=== PATIENT | female | born 1960 | race Caucasian/White ===

== ENCOUNTER 2021-02-05 13:55 | Outpatient (CLI) | payer BC, SELFPAY ==
--- NOTE | ~2021-02-05 | US_ITS ---
EXAMINATION: US right upper quadrant DATE: 02/05/2021 14:26 INDICATION: Right upper quadrant pain TECHNIQUE: Multiple grayscale and Doppler ultrasound images of the abdomen were obtained. COMPARISON: None available FINDINGS: The head and body of the pancreas are normal. The pancreatic tail is obscured by bowel gas. The liver is normal with normal echogenicity and echotexture. No surface nodularity. Normal hepatope lakhwinder flow in the main portal vein. The gallbladder is normal with no abnormal wall thickening, pericho lecystic fluid or stones. The normal common bile duct measures 3 mm. There was no sonographic Pool sign. IMPRESSION: 1. Normal sonographic study of the gallbladder. Reviewed, dictated and finalized at location A.
== END 2021-02-05 13:56 | disposition home or self-care (01) ==
PROVIDERS: PCP Family Medicine Adolescent Medicine; Visit Provider Physician Assistant
DX: R10.11 Right upper quadrant pain (principal)
CPT/HCPCS: 76705

== ENCOUNTER 2021-05-29 11:48 | Emergency (ER) | payer BC, SELFPAY ==
--- NOTE | ~2021-05-29 | CT_ITS ---
EXAMINATION: CT brain wo con INDICATION: Altered mental status COMPARISON: None TECHNIQUE: Standard unenhanced head CT. The dose-length product (DLP) was 605.33 mGy-cm. The mA was a djusted according to patient size. Iterative reconstruction technique was employed. FINDINGS: There is no intracranial hemorrhage, acute infarction, or abnormal mass lesion. The ventric les are normal. There is no abnormal mass effect or midline shift. The dempsey-white matter differentiat ion is normal. The basal cisterns are patent. The orbits are normal. The paranasal sinuses, mastoids and calvarium are normal. IMPRESSION: 1. No acute intracranial abnormality. Reviewed, dictated and finalized at location A. MACHINE FEEDER
--- NOTE | ~2021-05-29 | XR_ITS ---
EXAMINATION: XR chest 1V portable INDICATION: Altered mental status TECHNIQUE: Portable AP chest at 1219 hours COMPARISON: 08/18/2012 FINDINGS: The lungs are free of acute opacities. There is no pleural effusion or pneumothorax. The ca rdiomediastinal silhouette is normal. IMPRESSION: 1. No acute cardiopulmonary abnormality. Reviewed, dictated and finalized at location A. [employer]
[2021-05-29 11:54] VITALS: BP 176/94; PULSE 94; RESP 14; TEMP 36.3; O2SAT 100
--- NOTE | 2021-05-29 12:14 | ECG_ITS ---
Measurements Intervals [place] Rate: 70 P: -1 RI: 144 QRS: 37 QRSD: 97 T: 30 QT: 385 QTc: 417 Interpretive Statements SINUS RHYTHM INCOMPLETE RIGHT BUNDLE BRANCH BLOCK BASELINE ARTIFACT- I, III, AVR, AVL BORDERLINE ECG Electronically Signed On 05-29-2021 15:04:51 SPRINKLER INSPECTOR by Inderjit Falcon D.O.
--- NOTE | 2021-05-29 12:20 | ED.GENADULT ---
HPI - General Adult General Chief complaint: Unspecified Stated complaint: stroke Time Seen by Provider: 05/29/21 12:03 Source: RN notes reviewed History of Present Illness HPI narrative: Patient presents emergency department from home for confusion. Patient states symptoms began while she was getting ready to go over to the family's for Thanksgiving she states she was in the bathroom when she began to feel like the things she was experiencing were not real and she states she felt like she was high she states that she had no numbness or tingling in the extremities no weakness of any of the extremities no facial droop or trouble speaking she states that she feels this way still and that on the way in here she had problems finding her phone she states she lost her phone only 10 times she states that she has had similar episodes before in the past but none recently she does note increased stress as her daughter is being worked up for leukemia and she is tearful during her H&P she denies any chest pain shortness of breath or any other symptom Related Data Allergies Allergy/AdvReac Type Severity Reaction Status Date / Time sulfamethoxazole Allergy Unknown IRRITABLE, Verified 05/29/21 11:58 PT STATES IS MEAN trimethoprim Allergy Unknown IRRITABLE, Verified 05/29/21 11:58 PT STATES IS MEAN Review of Systems Review of Systems: Gen.: Denies fevers or chills ENT: Denies congestion Respiratory: Denies shortness of breath or cough CV: Denies chest pain or palpitations GI: Denies abdominal pain nausea, emesis or diarrhea Musculoskeletal: Denies back pain or muscle pain Neuro: See HPI Skin: Denies rash Except as documented, all other systems reviewed and negative [facility] Past Medical History Medical History (Updated 05/29/21 @ 15:15 by Cam Chatman DO) Hypothyroidism Social History Social History (Updated 05/29/21 @ 12:22 by Cam Chatman DO) Smoking status: Never smoker Exam Narrative: APPEARANCE: Anxious and tearful in bed, nontoxic, HEENT: Normocephalic, atraumatic, OMM, EYES: PERRL, EOMI NECK: Supple, nontender, full range of motion without pain, no meningismus RESPIRATORY: No respiratory distress, clear to auscultation bilaterally with no rhonchi wheezing or rales CARDIOVASCULAR: RRR s murmur ABDOMINAL: Soft, nontender, nondistended MUSCULOSKELETAL: Moves all extremities. No clubbing, cyanosis or edema. NEURO: A and O ?3, following commands, speech normal, cranial nerves II through XII grossly intact,muscle strength 5 out of 5 bilateral upper and lower extremities SKIN:: Warm, dry. Normal Color PSYCHIATRIC: Anxious in appearance and tearful Course Course Emergency Course: Patient states she is feeling much better at this time patient states symptoms are resolved following Ativan Called discussed Dr. Spencer presentation work-up agrees with plan for discharge agrees with plan for patients on Xanax to follow-up as outpatient Discussed with patient results of workup and diagnosis. Discussed need for follow-up with primary care, proper use of medication, and reasons to return to the emergency department. Patient understands and agrees to current treatment plan Vital Signs Vital signs: Vital Signs Temperature 97.4 F L 05/29/21 11:54 Pulse Rate 94 05/29/21 11:54 Respiratory Rate 14 05/29/21 11:54 Blood Pressure 176/94 H 05/29/21 11:54 Pulse Oximetry 100 05/29/21 11:54 Temperature 97.4 F L 05/29/21 11:54 Pulse Rate 78 05/29/21 14:50 Respiratory Rate 19 05/29/21 14:50 Blood Pressure 132/76 05/29/21 14:50 Pulse Oximetry 100 05/29/21 14:50 Medical Decision Making [facility] Narrative Medical decision making narrative: Patient with episode of feeling disoriented she was ANO x4 she had no focal neuro deficits but felt like she was high patient very anxious and tearful on arrival states she is had similar episodes in the past but never this severe patient was tr
[2021-05-29] MEDS: SODIUM CHLORIDE 0.9% IV 1,000 ML 999 ML IV CONT (12:25)
[2021-05-29] MEDS: LORazepam INJ (*CRX) 2 MG/ML VIAL 0.5 MG IV PUSH (12:26)
[2021-05-29 12:35] LABS: Basophils Percent Auto 0.4 % (0.2-1.2); Eosinophils Absolute Auto 0.1 K/mm3 (0-0.3); Eosinophils Percent Auto 0.6 % (0-4.4); Hematocrit 32.8 % (37.0-47.0); Immature Granulocyte Absolute 0.04 K/mm3 (0.00-0.031); Immature Granulocyte Percent A 0.5 % (0-0.5); Lymphocytes Absolute Auto 1.06 K/mm3 (0.9-3.2); Mean Corpuscular HGB Conc 36.6 g/dl (32-36); Mean Corpuscular Hemoglobin 35.8 pg (26-34); Mean Corpuscular Volume 97.9 fl (80-100); Mean Platelet Volume 10.4 fl (7.4-10.4); Monocytes Absolute Auto 0.4 K/mm3 (0.1-0.6); Monocytes Percent Auto 5.2 % (2.6-8.5); Neutrophils Absolute Auto 6.6 K/mm3 (1.3-6.7); Neutrophils Percent Auto 80.3 % (45.5-73.1); Platelet Count Result 150 k/mm3 (150-375); Red Blood Count 3.35 M/mm3 (4.2-5.4); Red Cell Distribution Width 15.6 % (11.5-14.5); White Blood Count 8.2 K/mm3 (4.5-10.0)
[2021-05-29 12:45] LABS: Prothrombin Time 13.4 Seconds (11.1-14.7)
[2021-05-29 12:46] LABS: Alanine Aminotransferase 26 U/L (4-35); Albumin Level 4.4 g/dL (3.5-5.1); Alkaline Phosphatase 54 U/L (38-126); Anion Gap 5 mmol/L (8-16); Aspartate Amino Transferase 32 U/L (14-36); Bilirubin,Total 1.9 mg/dL (0.2-1.3); Blood Urea Nitrogen 14 mg/dL (7-17); Calcium 9.1 mg/dL (8.4-10.2); Carbon Dioxide 29 mmol/L (22-30); Chloride 102 mmol/L (98-107); Estimated CRCL calculation 75 ml/min; Estimated Glomerular Filt Rate > 60; Ethanol < 10 mg/dL (<10); Glucose 115 mg/dL (65-110); Potassium 4.2 mmol/L (3.4-5.0); Sodium 136 mmol/L (137-145)
[2021-05-29 12:56] VITALS: BP 136/72; PULSE 74; RESP 20; O2SAT 100
[2021-05-29 13:54] LABS: Add Urine Microscopic? YES; Appearance Urine Clear (Clear); Bilirubin Urine Negative (Negative); Blood Urine Negative (Negative); Color Urine Yellow (Yellow); Glucose Urine UA Negative (Negative); Ketones Urine Negative (Negative); Leukocyte Esterase Ur Negative LEU/UL (Negative); Mucus Urine Rare /lpf; Nitrate Urine Negative (Negative); Protein Urine Negative (Negative); RBC Urine 0-2 /hpf (0-2); Specific Grav Ur 1.005 (1.001-1.035); Squamous Epithelial Cell Urine Rare /hpf (Few); Urobilinogen Urine Negative mg/dL (<2.0)
[2021-05-29 13:55] LABS: Amphetamine Screen Urine Negative (Negative); Barbiturate Screen Urine Negative (Negative); Benzodiazepines Screen Urine Negative (Negative); Cannabinoid Screen Urine Negative (Negative); Cocaine Screen Urine Negative (Negative); Methadone Screen Urine Negative (Negative); Opiate Screen Urine Negative (Negative); Phencyclidine Screen Urine Negative (Negative)
[2021-05-29 14:50] VITALS: BP 132/76; PULSE 78; RESP 19; O2SAT 100
[2021-05-29 15:44] VITALS: BP 120/84; PULSE 75; RESP 15; O2SAT 100
== END 2021-05-29 15:47 | disposition home or self-care (01) ==
PROVIDERS: Emergency Provider Emergency Medicine; PCP Family Medicine Adolescent Medicine
DX: F41.9 Anxiety disorder, unspecified (principal); E03.9 Hypothyroidism, unspecified
CPT/HCPCS: 36415; 70450; 71045; 80053; 80307; 81001; 84443; 85025; 85610; 85730; 93005; 96361; 96374; 99284; J2060; J7030

== ENCOUNTER → 2022-12-23 13:40 | Outpatient (CLI) | payer BC, SELFPAY ==
--- NOTE | ~2022-12-23 | US_ITS ---
US abdomen complete EXAMINATION: US Abdomen Complete INDICATION: Right upper quadrant pain for 6 weeks. Spherocytosis. PROCEDURE: Realtime High Resolution abdomen ultrasound. COMPARISON: No prior studies for comparison FINDINGS: Gallbladder within normal limits. No gallstones, pericholecystic fluid, gallbladder wall t hickening or biliary dilatation. Common bile duct measures 5 mm. Liver echotexture within normal limits without focal mass. Pancreas within normal limits. Pancreati c tail is obscured by bowel gas. Spleen is enlarged measuring 13.5 cm. Renal echotexture is within n ormal limits bilaterally without hydronephrosis, contour deforming mass or renal stone. Right kidney measures 10.9 cm. Left kidney measures 11.7 cm. Visualized aspects of the aorta and IVC are within normal limits. Portal vein is patent. No sonograph ic Pool's sign indicated by the technologist. IMPRESSION: 1: Splenomegaly. Reviewed, dictated and finalized at location [] IMPRESSION: 1: Splenomegaly.
== END ==
PROVIDERS: PCP Family Medicine Adolescent Medicine; Visit Provider Family Medicine Adolescent Medicine
DX: R10.11 Right upper quadrant pain (principal); D58.0 Hereditary spherocytosis
CPT/HCPCS: 76700

== ENCOUNTER 2023-09-10 01:41 | Day surgery (SDC) | payer OTHER, SELFPAY ==
[2023-09-06 12:43] VITALS: BMI 24.7
--- NOTE | 2023-09-06 12:47 | PC.NURSE ---
Report to the Outpatient Waiting Room, entrance under the green pavilion located off [facility], at time 1130 on date 09/10/23. Planned Procedure Time: 1330. Time changes happen often and if your time is changed the preop area will call you the afternoon before. - You and your visitor will be asked to self-screen and do not enter if you have any COVID symptoms. - A mask is optional within the hospital at this time. Patients may have clear liquids (water, carbonated beverages, clear teas, apple juice) until 3 hours prior to surgery with a maximum of 20 ounces. - No food from midnight until time of surgery Take the following medications with a SIP of water the morning of surgery: NONE DO NOT STOP ANY OF YOUR OTHER PRESCRIPTION MEDICATIONS PRIOR TO SURGERY ?EXCEPT THE FOLLOWING Medications to discontinue per physician: N/A Date to take last dose: N/A Please no make-up, nail divehi, hairspray, perfume, deodorant, or body powder the day of surgery. No jewelry (including any body piercings) or valuables the day of surgery, leave them at home. Please take a shower or bath the night before, or the morning of, surgery with an antibacterial soap. Wear comfortable, loose fitting clothing. - Jewelry must be removed prior to entering the operating room. Rings and piercings that are not removed may be cut off. - The hospital will not accept responsibility for valuables. - Please leave all valuables, including medications, at home the day of surgery. If you are going home after surgery, a licensed cdl bulk driver must drive you home. - NO public transportation without another adult if you receive anesthesia. - We recommend that an adult stay with you for 24 hours following discharge. - We also recommend that you do not drive, make important decision, drink alcoholic beverages, or take any drugs that were not prescribed by your health care provider for at least 24 hours after your discharge time. Follow any additional instructions given to you from your surgeon. If you or anyone in your household have experienced Covid symptoms in the past week, please notify your surgeon or the nurse liaison at the phone number below for possible testing. Telephone instructions given to PT - JANICE PENNY and asked if any additional questions and then verbalized understanding. Patient advised to call surgeon office or pre surgery nurse liaison [phone] if any additional questions.
[2023-09-10] VITALS (9 sets, daily range): BP systolic 126–157; BP diastolic 56–79; PULSE 65–75; RESP 10–22; TEMP 36.4–36.7; O2SAT 98–100
[2023-09-10] MEDS: LACTATED RINGERS 1,000 ML 30 ML IV CONT (12:03)
--- NOTE | 2023-09-10 12:51 | P.PNAN_ITS ---
Anes - Initial Pre Proc Eval Procedure: Operation Date: 09/10/23 13:30 Proposed Procedures p Bilateral Breast Implant Exchange with Capsulectomy - Jaya Carballo MD Date/Time: 09/10/23 12:51 Surgeon: Jaya Carballo MD Pre Op Diagnosis: Kedar Breast Implant Rupture Patient Data Age: 63 Gender: F Height: 1.74 m Weight: 71.5 kg Last Vital Signs Temp 98.0 F 09/10/23 11:48 Pulse 68 09/10/23 11:48 Resp 18 09/10/23 11:48 BP 126/56 L 09/10/23 11:48 Pulse Ox 98 09/10/23 11:48 O2 Del Method Room Air 09/10/23 11:48 Allergies Allergy/AdvReac Type Severity Reaction Status Date / Time sulfamethoxazole Allergy Unknown IRRITABLE, Verified 09/10/23 11:31 PT STATES IS MEAN trimethoprim Allergy Unknown IRRITABLE, Verified 09/10/23 11:31 PT STATES IS MEAN Home Medications Medication Instructions Recorded Confirmed Type Synthroid 125 mcg tablet See Rx Instructions .Route 12/11/22 09/10/23 Rx (levothyroxine) .COMPLEX #30 tabs conjugated estrogens 0.625 mg 0.625 mg PO DAILY 12/11/22 09/10/23 History tablet (Premarin) medroxyprogesterone 2.5 mg tablet 2.5 mg PO DAILY 12/11/22 09/10/23 History Patient hx anesthesia problems: none Family hx anesthesia problems: none Results Review: All pre-operative results and documents have been reviewed as part of the pre-operative evaluation. [facility] Past Medical History Medical History (Updated 12/11/22 @ 11:26 by Gilles Spencer MD) Hypothyroidism Family History Family History (Updated 12/10/22 @ 06:01 by Gilles Spencer MD) Father Heart disease Social History Social History (Updated 05/29/21 @ 12:22 by Cam Chatman, DO) Years smoked: 20 Smoking status: Current every day smoker Tobacco type: cigarettes Alcohol intake: current Drinks per week: 6 Substance use: never Substance use type: does not use Living arrangements: with family Spiritual care concerns: No Anes - Eval Final PreProcedure Day of Procedure 09/10/23 12:51 Patient weight: normal Heart: regular rate and rhythm Lungs: clear to auscultation Airway: Mallampati scale class II Neurological: alert and oriented Last oral intake: >/= 8 hours ASA classification: II Emergent: no Anesthetic plan: proceed Anesthesia type and monitoring: general LMA and standard monitoring Results Review: All pre-operative results and documents have been reviewed as part of the pre- operative evaluation. Informed Consent: The patient's anesthetic plan and its attendant risks and benefits were discussed with the patient/family/POA. Questions were solicited and answers provided to the satisfaction of the patient/family/POA.
--- NOTE | 2023-09-10 12:52 | WPDHPUPDATE1 ---
History and Physical Update Update Date/Time: 09/10/23 12:52 History and Physical has been reviewed, including an updated exam of the patient. There are NO changes in the patient's condition. Risks, benefits, and alternatives have been discussed and questions answered. Patient agrees to proceed with procedure.
--- NOTE | 2023-09-10 12:52 | W.PM.PROC2 ---
Procedure Note - Detailed Date of Procedure 09/10/23 Pre-op Diagnosis Kedar Breast Implant Rupture Post-op Diagnosis Same Procedure Performed Bilateral implant removal with capsulectomy Surgeon Jaya Carballo MD Anesthesia General Findings Previous Implants: Right - [id number] Smooth Saline 350 cc Right - 350-1660 Smooth Saline 375 cc New Implants: Right - Ref# [id number]# [id number] 350cc filled to 400 cc Right - Ref# [id number] Lot# [id number] 375cc filled to 425 cc Capsules: Right - Anterior thickening. Sent to pathology. Left - Soft, no worrisome features. Sent to pathology. Description of Procedure Preoperatively the risks, benefits, alternatives were discussed in extensive detail. I wanted to be very realistic about the risks involved as well as expectations. I was clear about how we could actually make her worse. Answered all questions to satisfaction. Voiced a clear understanding. Consent obtained. She was taken the operating room placed supine on the operating room table. Anesthesia provided by anesthesiology and prepped and draped in a standard sterile fashion. Surgical time-out was taken. 1% lidocaine and 0.25% Marcaine with epinephrine was used to provide a field block. Tegaderm nipple colunga were placed. Fifteen blade used to excise the previous IMF scars. Dissection was continued down until the capsules were identified and excised a significant portion of the capsule which was sent to pathology. I then copiously irrigated with 3 L of saline solution on TUR tubing. Verified strict hemostasis. I then irrigated with Betadine containing solution. On the back table the implant was prepared. Air was removed. Placed into the pocket and utilizing a fill kit we filled to the volumes as above. This was closed with 2-0 PDS followed by 3-0 Monocryl and a running subcuticular 4-0 Monocryl followed by tissue glue. Dressings were placed. She was woken taken to the PACU without difficulty. All instrument sponge counts were correct at the end of the case. Estimated Blood Loss 25 Drains No Packing No Pathology Yes (Bilateral breast implant capsules) Complications No immediate complications Condition Stable Disposition PACU
[2023-09-10] MEDS: ceFAZolin 2 GM/D5W 50 ML 2 GM/50 ML BAG IVPB (13:11)
[2023-09-10] MEDS: TRANEXAMIC ACID 1,000MG/ISO100 1,000 MG/100 ML BAG 200 MG IVPB (13:11)
[2023-09-10] MEDS: LIDO 1%/EPINEPHRINE 1:100,000 50 ML VIAL 30 ML INFILTRATE (13:11)
[2023-09-10] MEDS: NACL 0.9% IRRIG POUR BOTTLE 900 ML, GENTAMICIN SULFATE INJ 160 MG, ceFAZolin 2 GM, POVI... IRRIGATION (13:11)
[2023-09-10] MEDS: BUPivacaine HCL 0.25% PF 30 ML VIAL INFILTRATE (13:11)
--- NOTE | 2023-09-10 14:28 | SUR.PHASEI ---
1425-Pt states breast are burning, states she doesn't want to take anything. Will not rate level of burning. Explained to pt pain medication is available and is encouraged when discomfort begins-continues to refuse pain med.
[2023-09-10] MEDS: fentaNYL CITRATE INJ (*CRX) 100 MCG/2 ML VIAL 25 MCG IV PUSH ×2 (14:38→14:45)
--- NOTE | 2023-09-10 14:39 | SUR.PHASEI ---
1436-pt states burning in breasts is level 7, pain medication encouraged and pt willing to try dose.
== END 2023-09-10 16:16 | disposition home or self-care (01) ==
PROVIDERS: PCP Family Medicine Adolescent Medicine; Visit Provider Surgery Plastic and Reconstructive Surgery
PROC: (CPT 19342; principal; 2023-09-10 13:30)
DX: T85.49XA Other mechanical complication of breast prosthesis and implant, initial encounter (principal)
CPT/HCPCS: 19371; 19342; 88184; 88304; J0690; J1100; J1580; J2250; J2405; J2704; J3010; J7030; J7120

== ENCOUNTER → 2024-11-14 08:58 | Outpatient (REF) | payer BC, SELFPAY ==
--- OUTSIDE RECORDS SUMMARY | 2024-11-14 10:10 | XMS_ITS | Encounter Summary ---
Author Organization [facility] Address [address] [place] [address] Care Team Providers Care Edge Burnisher Name Role Phone Gilles Spencer MD Primary Care Provider [phone]- [phone] Encounter Details Date Type Department Care Team (Latest Contact Info) Description 05/30/2007 Outpatient Historical [facility] Burgess, Marco oDwd MD [address] [place] [address] Lump or Mass in Breast (Primary Dx) Social History Tobacco Use Types Packs/Day Years Used Date Smoking Tobacco: Never Assessed Comments Unknown Sex and Gender Information Value Date Recorded Sex Assigned at Female 05/26/2023 10:35 AM HOG TRADER Legal Sex Female 2:52 AM HOG TRADER Gender Identity Female 05/26/2023 10:35 AM HOG TRADER Sexual Orientation Not on file documented as of this encounter Plan of Treatment Not on file documented as of this encounter Visit Diagnoses Diagnosis Lump or mass in breast- Primary documented in this encounter Care Teams Edge Burnisher Relationship Specialty Start Date End Date Gilles Spencer MD PCP - General 02/25/09 documented as of this encounter
--- OUTSIDE RECORDS SUMMARY | 2024-11-14 10:10 | XMS_ITS | Encounter Summary ---
Author Organization [facility] Address [address] [place] [address] Care Team Providers Care Front End Manager Name Role Phone Gilles Spencer MD Primary Care Provider [phone]- [phone] Encounter Details Date Type Department Care Team (Latest Contact Info) Description 05/04/2005 Outpatient Historical [facility] Burgess, Marco Dowd MD [address] [place] [address] SURGERY FOLLOWUP NEC (Primary Dx) Social History Tobacco Use Types Packs/Day Years Used Date Smoking Tobacco: Never Assessed Comments Unknown Sex and Gender Information Value Date Recorded Sex Assigned at Female 05/26/2023 10:35 AM ASSISTED LIVING DIRECTOR Legal Sex Female 2:52 AM ASSISTED LIVING DIRECTOR Gender Identity Female 05/26/2023 10:35 AM ASSISTED LIVING DIRECTOR Sexual Orientation Not on file documented as of this encounter Plan of Treatment Not on file documented as of this encounter Visit Diagnoses Diagnosis Follow-up examination, following other surgery- Primary documented in this encounter Care Teams Front End Manager Relationship Specialty Start Date End Date Gilles Spencer MD PCP - General 02/25/09 documented as of this encounter
--- OUTSIDE RECORDS SUMMARY | 2024-11-14 10:10 | XMS_ITS | Encounter Summary ---
Author Organization [facility] Address [address] [place] [address] Care Team Providers Care Tow Truck Dispatcher Name Role Phone Gilles Spencer MD Primary Care Provider [phone]- [phone] Encounter Details Date Type Department Care Team (Late st Contact Info) Description 06/01/2007 Outpatient Historical [facility], [address] Yael Chen MD NO ADDRESS ON FILE Social History Tobacco Use Types Packs/Day Years Used Date Smoking Tobacco: Never Assessed Comments Unknown Sex and Gender Information Value Date Recorded Sex Assigned at Female 05/26/2023 10:35 AM FORKLIFT TRUCK OPERATOR Legal Sex Female 2:52 AM FORKLIFT TRUCK OPERATOR Gender Identity Female 05/26/2023 10:35 AM FORKLIFT TRUCK OPERATOR Sexual Orientation Not on file documented as of this encounter Plan of Treatment Not on file documented as of this encounter Visit Diagnoses Not on filedocumented in this encounter Care Teams Tow Truck Dispatcher Relationship Specialty Start Date End Date Gilles Spencer MD PCP - General 02/25/09 documented as of this encounter
--- OUTSIDE RECORDS SUMMARY | 2024-11-14 10:10 | XMS_ITS | Encounter Summary ---
Author Organization [employer] [facility] Address [address] [place] [address] Care Team Providers Care Director [facility] Name Role Phone Ashlee Spencer MD Primary Care Provider +1- [phone] Encounter Details Date Type Department Care Team (Late st Contact Info) Description 12/27/2008 Outpatient Historical [facility] Keyana Hernandez MD [address] [facility] [address] [address] [place] [address] [facility] [address] [place] [address] Social History Tobacco Use Types Packs/Day Years Used Date Smoking Tobacco: Never Assessed Comments Unknown Sex and Gender Information Value Date Recorded Sex Assigned at Female 05/26/2023 10:35 AM EDUCATION DIAGNOSTICIAN Legal Sex Female 2:52 AM EDUCATION DIAGNOSTICIAN Gender Identity Female 05/26/2023 10:35 AM EDUCATION DIAGNOSTICIAN Sexual Orientation Not on file documented as of this encounter Plan of Treatment Not on file documented as of this encounter Procedures Procedure Name Priority Date/Time Associated Diagnosis Comments CYTOLOGY, NON GYNE Routine 12/27/2008 1: 48 PM CDT XR CONSULTATION Timed Study 12/27/2008 11:10 AM CDT US HEAD NECK TISSUES Timed Study 12/27/2008 11:10 AM CDT US GUIDE NEEDLE PLACEMENT Timed Study 12/27/2008 11:09 AM CDT documented in this encounter Results * CYTOLOGY, NON GYNE (12/27/2008 1:48 PM CDT) PATHOLOGY/CYT OLOGY REPORT [facility] [address] [place], [place] [address] Patient: JANICE BARBA : 1960 Procedure Date: 12/27/2008 Accession Date: 12/27/2008 Case No: [id number] Ordering Dr: ALEXI HOPKINS Case types AW, BW, FW, NW and SH are performed by [facility] [place], [place] SURGICAL PATHOLOGY & NON-GYNECOLOGIC CYTOPATHOLOGY REPORT DIAGNOSIS: THYROID, LEFT, SMEAR AND CELL BLOCK EXAMINATION: - HURTHLE PROLIFERATION WITH HEMORRHAGIC/CYSTI C DEGENERATION. Specimen Description: Left thyroid nodule. Operative Procedure: Not stated. Patient Information/Histo ry/Diagnosis: Not stated. Gross: We receive one container with 25 cc bloody fluid. The specimen is received in CytoLyt. A liquid-based monolayer smear and cell block are prepared. [facility] 12.28.2008 07:14 am Microscopic: The smear and cell block sections display numerous macrophages, many of which contain hemosiderin, attesting to hemorrhagic/cysti c degeneration. 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 [facility] 12.28.2008 07:14 am Staging Form: No ELECTRONIC SIGNATURE FOR JOHN HOWELL M.D.- 12/28/08 08:43 am INTERFACE SYSTEM 12/27/2008 1:48 PM CDT us Alexi Hopkins MD PATHOLOGY/CYTOLOGY ORDERABLES Final Result INTERFACE SYSTEM Refer to clinic/hospital department * XR CONSULTATION (12/27/2008 11:10 AM CDT) 12/27/2008 11:1 0 AM CDT Narrative INTERFACE SYSTEM - 12/30/2008 9:18 PM CDT [facility] [address] [address] Admit Date: 12/27/2008 JANICE BARBA Teresa Sex: F Admit Prov: KEYANA HERNANDEZ Date: 1960 Primary Care Prov: ASHLEE WALTON CMRN: [id number] [id number] IM[facility] Ordering Prov: KEAYNA HERNANDEZ Accession Number: [id number] Interpretation SEE OTHER REPORT OF SAME DATE. Dictated by: RADIOLOGY, DEPARTMENT O Electronically signed by: RADIOLOGY, DEPARTMENT 12/30/2008 21:17 Transcribed: 12/30/2008 20:55 AMK Procedure Note Radiology, Radiologist - 12/30/[address] [address] Admit Date: 12/27/2008 JANICE BARBA Sex: F Admit Prov: KEYANA HERNANDEZ Date: 1960 Primary Care Prov: ASHLEE WALTON CMRN: [id number] [facility] [id number] IMAGING SERVICES Ordering Prov: KEYANA HERNANDEZ Interpretation SEE OTHER REPORT OF SAME DATE. Dictated by: RADIOLOGY, DEPARTMENT O Electronically signed by: RADIOLOGY, DEPARTMENT 12/30/2008 21:17 Transcribed: 12/30/2008 20:55 AMK Keyana Hernandez MD DIAGNOSTIC IMAGING ORDERABLES Final Result Performing Organization Address City/State/[facility] Co de Phone Number INTERFACE SYSTEM Refer to clinic/hospital department * US NECK TISSUES (12/27/2008 11:10 AM CDT) Anatomical Region Laterality Modality Head Other 12/27/2008 11:1 0 AM CDT Narrative 12/27/2008 1:50 PM CDT [address] [address] Admit Date: 12/27/2008 JANICE BARBA Sex: F Admit Prov: KEYANA HERNANDEZ Date: 1960 Primary Care Prov: ASHLEE WALTON CMRN: [id number] [facility] [id number] IMAGING SERVICES Ordering Prov: N/A Accession Number: [id number] Interpretation EXAMINATION: ULTRASOUND OF THYROID GLAND. 12/27/2008 Clinical History: Thyroid nodule. Findings: Sonographic examination demonstrates normal size thyroid gland. The right thyroid lobe measures 4.6 x 1.4 x 1.8 cm. Left thyroid lobe measures 4.7 x 1.9 x 1.9 cm. There is a heterogenously partially cystic hypoechoic 1.8 x 2.1 x 1.3 cm nodule in the inferior left thyroid lobe. There is no significant vascularity or internal calcification. IMPRESSION: Left thyroid nodule. . Dictated by: Nam ODONNELL 12/27/2008 12:54 Electronically signed by: Nam ODONNELL 12/27/2008 13:49 Transcribed: 12/27/2008 13:44 AMK Procedure Note Valentín Odonnell MD - 12/27/[address] [address] Admit Date: 12/27/2008 JANICE BARBA Sex: F Admit Prov: KEYANA HERNANDEZ Date: 1960 Primary Care Prov: ASHLEE WALTON CMRN: [id number] [facility] [id number] IM[facility]ING SERVICES Ordering Prov: N/A Interpretation EXAMINATION: ULTRASOUND OF THYROID GLAND. 12/27/2008 Clinical History: Thyroid nodule. Findings: Sonographic examination demonstrates normal size thyroidgland. The right thyroid lobe measures 4.6 x 1.4 x 1.8 cm. Left thyroidlobe measures 4.7 x 1.9 x 1.9 cm. There is a heterogenously partiallycystic hypoechoic 1.8 x 2.1 x 1.3 cm nodule in the inferior left thyroidlobe. There is no significant vascularity or internal calcification. IMPRESSION: Left thyroid nodule. . Dictated by: Nam ODONNELL 12/27/2008 12:54 Electronically signed by: Nam ODONNELL 12/27/2008 13:49 Transcribed: 12/27/2008 13:44 AMK us Keyana Hernandez MD US ORDERABLES Final Result * US GUIDE NEEDLE PLACEMENT (12/27/2008 11:09 AM CDT) Anatomical Region Laterality Modality Other 12/27/2008 11:0 9 AM CDT Narrative 01/01/2009 9:11 PM CDT [address] [address] Admit Date: 12/27/2008 JANICE BARBA Sex: F Admit Prov: KEYANA HERNANDEZ Date: 1960 Primary Care Prov: ASHLEE WALTON CMRN: [id number] [facility] [id number] IM[facility]ING SERVICES Ordering Prov: N/A Accession Number: [id number] Interpretation ULTRASOUND-GUIDED THYROID BIOPSY 12/27/2008 History: Left thyroid nodule Technique: Risks and benefits of the procedure were discussed with the patient and informed consent was obtained. The patient's left neck was prepped and draped in the usual sterile fashion. Lidocaine was used to anesthetize the skin and subcutaneous tissues. Under direct ultrasound guidance, multiple fine needle aspirates of a heterogeneous left thyroid nodule were obtained and submitted for analysis. The patient tolerated the procedure well with no immediate complications. IMPRESSION: Status post ultrasound guided thyroid biopsy. . Dictated by: ALEXI HOPKINS 12/27/2008 13:33 Electronically signed by: ALEXI HOPKINS 01/01/2009 21:10 Transcribed: 12/27/2008 13:36 AMK Procedure Note Alexi Hopkins MD - 01/01/2009 [address] [address] [place], [place] [address] Admit Date: 12/27/2008 JANICE BARBA Sex: F Admit Prov: KEYANA HERNANDEZ Date: 1960 Primary Care Prov: ISABELLE ASHLEE Kale CMRN: [id number] Room: [facility] SSN: [id number] IMAGING SERVICES Ordering Prov: N/A Interpretation ULTRASOUND-GUIDED THYROID BIOPSY 12/27/2008 History: Left thyroid nodule Technique: Risks and benefits of the procedure were discussed withthe patient and informed consent was obtained. The patient's left neckwas prepped and draped in the usual sterile fashion. Lidocaine was usedto anesthetize the skin and subcutaneous tissues. Under directultrasound guidance, multiple fine needle aspirates of a heterogeneous leftthyroid nodule were obtained and submitted for analysis. The patienttolerated the procedure well with no immediate complications. IMPRESSION: Status post ultrasound guided thyroid biopsy. . Dictated by: ALEXI HOPKINS 12/27/2008 13:33 Electronically signed by: ALEXI HOPKINS 01/01/2009 21:10 Transcribed: 12/27/2008 13:36 AMK Keyana Hernandez MD ORDERABLES Final Result documented in this encounter Visit Diagnoses Not on filedocumented in this encounter Care Teams Director Multiple Sclerosis Center Relationship Specialty Start Date End Date Ashlee Spencer MD PCP - General 02/25/09 documented as of this encounter
--- OUTSIDE RECORDS SUMMARY | 2024-11-14 10:10 | XMS_ITS | Encounter Summary ---
Author Organization [facility] Address [address] [place] [address] Care Team Providers Care Jingle Writer Name Role Phone Gilles Spencer MD Primary Care Provider +1- [phone] Encounter Details Date Type Department Care Team (Late st Contact Info) Description 06/18/1999 Outpatient Historical [facility] DR. JOHNSON & Uziel Berg MD Social History Tobacco Use Types Packs/Day Years Used Date Smoking Tobacco: Never Assessed Comments Unknown Sex and Gender Information Value Date Recorded Sex Assigned at Female 05/26/2023 10:35 AM CUSTOMER SALES SERVICE MANAGER Legal Sex Female 2:52 AM CUSTOMER SALES SERVICE MANAGER Gender Identity Female 05/26/2023 10:35 AM CUSTOMER SALES SERVICE MANAGER Sexual Orientation Not on file documented as of this encounter Plan of Treatment Not on file documented as of this encounter Visit Diagnoses Not on filedocumented in this encounter Care Teams Jingle Writer Relationship Specialty Start Date End Date Gilles Spencer MD PCP - General 02/25/09 documented as of this encounter
--- OUTSIDE RECORDS SUMMARY | 2024-11-14 10:10 | XMS_ITS | Clinical Summary ---
Author Organization [facility] Administrative Offices Address [address] [place] [address] Care Team Providers Care University Registrar Name Role Phone Gilles Spencer MD Primary Care Provider +1- [phone] Family History Medical History Relation Name Comments No Known Problems Daughter No Known Problems Maternal Grandmother No Known Problems Mother No Known Problems Other No Known Problems Sister Breast Cancer Neg Hx Cancer Neg Hx Ovarian Cancer Neg Hx Relation Name Status Comments Daughter Maternal Grandmother Mother Other Sister Social History Tobacco Use Types Packs/Day Years Used Date Smoking Tobacco: Never Assessed Comments Unknown Sex and Gender Information Value Date Recorded Sex Assigned at Female 05/26/2023 10:35 AM HEAD ANIMAL KEEPER Legal Sex Female 2:52 AM HEAD ANIMAL KEEPER Gender Identity Female 05/26/2023 10:35 AM HEAD ANIMAL KEEPER Sexual Orientation Not on file Plan of Treatment Health Maintenance Due Date Last Done Comments DTAP/TDAP/TD VACCINES (1 - Tdap) 1981 HPV/Cotest (21-29) 1983 CERVICAL CANCER SCREENING 1992 HPV/Cotest (30-65) 1992 PAP SMEAR 1992 COLORECTAL SCREENING 2007 Colorectal Cancer Screening 2007 FIT-DNA Q 3 years 2007 FIT/FOBT Q 1 year 2007 Flex Sig/CT Colonography Q 5 years 2007 ZOSTER VACCINE (1 of 2) 2012 BREAST CANCER SCREENING 03/16/2019 03/16/20 18, 08/16/2012, 04/28/2010 INFLUENZA VACCINE (#1) 2024 RSV VACCINE (60+ or ) (1 - 1-dose 75+ series) 2037 Procedures Procedure Name Priority Date/Time Associated Diagnosis Comments MAMMO SCREEN IMPL BILAT W OR WO CAD Routine 03/16/2018 1:14 PM CDT Visit for screening mammogram from Last 3 Months or Most Recently Relevant to Health Maintenance Results * MAMMO SCREEN IMPL BILAT W OR WO CAD (03/16/2018 1:14 PM CDT) Anatomical Region Laterality Modality Breast Bilateral Mammography 03/16/2018 1:14 PM CDT Impressions 03/16/2018 5:04 PM CDT IMPRESSION: Negative bilateral screening mammogram. Recommend routine followup. Overall Assessment: BI-RADS Category 1 - Negative. Dictation Location: [facility] Narrative 03/16/2018 5:04 PM CDT BILATERAL DIGITAL SCREENING IMPLANT MAMMOGRAM WITH CAD DATE: 03/16/2018 1:14 PM HISTORY: Annual screening study. COMPARISON: 08/16/2012. TECHNIQUE: A bilateral screening mammogram was performed. In addition to the standard views, implant displaced views were obtained in two projections, eight views total. BREAST COMPOSITION: Scattered fibroglandular densities. FINDINGS: No new masses, suspicious calcifications, or areas of asymmetry or distortion are identified. The images were reviewed using the CAD system. Procedure Note Gina Agudelo MD - 03/16/2018 BILATERAL DIGITAL SCREENING IMPLANT MAMMOGRAM WITH CAD DATE: 03/16/2018 1:14 PM HISTORY: Annual screening study. COMPARISON: 08/16/2012. TECHNIQUE: A bilateral screening mammogram was performed. In addition to the standard views, implant displaced views were obtained in two projections, eight views total. BREAST COMPOSITION: Scattered fibroglandular densities. FINDINGS: No new masses, suspicious calcifications, or areas of asymmetry or distortion are identified. The images were reviewed using the CAD system. IMPRESSION: Negative bilateral screening mammogram. Recommend routine followup. Overall Assessment: BI-RADS Category 1 - Negative. Dictation Location: [facility] Marco Burgess MD MAMMO ORDERABLES Final Resul t from Last 3 Months or Most Recently Relevant to Health Maintenance Insurance [facility] BLUE ACCESS CHOICE Care Teams University Registrar Relationship Specialty Start Date End Date Gilles Spencer MD PCP - General 02/25/09
--- OUTSIDE RECORDS SUMMARY | 2024-11-14 10:11 | XMS_ITS | Encounter Summary ---
Author Organization [facility] Address [address] [place] [address] Care Team Providers Care Experimental Mechanic Spacecraft Name Role Phone Gilles Spencer MD Primary Care Provider +1- [phone] Encounter Details Date Type Department Care Team (Latest Contact Info) Description 01/30/2009 Outpatient Historical [facility] Keyana Hernandez MD [address] [facility] [address] [place] [address] Nontoxic Uninodular Goiter Social History Tobacco Use Types Packs/Day Years Used Date Smoking Tobacco: Never Assessed Comments Unknown Sex and Gender Information Value Date Recorded Sex Assigned at Female 05/26/2023 10:35 AM COLD SAW OPERATOR Legal Sex Female 2:52 AM COLD SAW OPERATOR Gender Identity Female 05/26/2023 10:35 AM COLD SAW OPERATOR Sexual Orientation Not on file documented as of this encounter Plan of Treatment Not on file documented as of this encounter Procedures Procedure Name Priority Date/Time Associated Diagnosis Comments PATHOLOGY Routine 02/21/2009 2:28 PM CDT POC , URINE Routine 02/21/2009 6:45 AM CDT HEMOGLOBIN AND HEMATOCRIT Stat 02/21/2009 6:15 AM CDT documented in this encounter Results * PATHOLOGY (02/21/2009 2:28 PM CDT) FINAL REPORT [facility] [address], [place] [address] Patient: JANICE BARBA : 1960 Procedure Date: 02/21/2009 Accession Date: 02/21/2009 Case No: [id number] Ordering Dr: KEYANA HERNANDEZ Case type SW is performed by [facility], [place], [place]; all other case types are performed by [facility], [place], [place] SURGICAL PATHOLOGY & NON-GYNECOLOGIC CYTOPATHOLOGY REPORT DIAGNOSIS THYROID, LEFT LOBE, EXCISION: - ADENOMATOID NODULE WITH HURTHLE CELL CHANGE. - POST BIOPSY CHANGES. Specimen Description: Thyroid left lobe frozen section. Operative Procedure: Left thyroidectomy with frozen section. Patient Information/Histor y/Diagnosis: Thyroid nodule. Frozen Section: FS: Thyroid, left lobe: - Follicular lesion with Hurthle cell change; favor benign. [facility] 02.21.2009 04:51 pm Gross: Received in one container labeled Janice Barba., left lobe thyroid frozen section is an 8.1-g, 4.0 x 2.5 x 1.5-cm lobe of thyroid. It is inked blue. Sectioning demonstrates a 2.1-cm, hemorrhagic, cystic, well- circumscribed nodule. The nodule comes to within 0.1 cm of the blue-inked margin. A patient relations representative section of the nodule is frozen as FS1. The frozen section remnant is submitted in block AFS1. The remainder of the nodule is submitted in blocks A1 and A2. The remainder of the thyroid lobe is submitted in blocks A3 and A4. [facility] 02.21.2009 04:51 pm Microscopic: The slides are labeled [id number], Janice Barba. The frozen section diagnosis is confirmed. The sections of the left lobe thyroid show a thyroid involved by nodular hyperplasia. A dominant nodule is present, which displays prominent Hurthle cell change. Evidence of recent biopsy is seen, including hemosiderin-laden macrophages and fibrosis. There is no evidence of malignancy. [facility] 02.22.2009 02:28 pm Staging Form: No. ELECTRONIC SIGNATURE FOR RENÉE COHEN M.D.- 02/22/09 09:[address] [facility] 02/21/2009 2:28 PM CDT us Keyana Hernandez MD PATHOLOGY/CYTOLOGY ORDERABLES Final Result Performing Organization Address [facility] Co de Phone Number [facility] CLIA# [id number] [address] [place] [address] * POC , URINE (02/21/2009 6:45 AM CDT) , URINE POC Negative Negative [facility] CLIA LICENSE [id number] [facility] Urine specimen (specimen) 02/21/2009 6:45 AM CDT 02/21/2009 6:45 AM CDT us Keyana Hernandez MD POINT OF CARE TESTING Final R esult Performing Organization Address [facility] de Phone Number [facility] CLIA# [id number] [address] [place], [place] [address] * (ABNORMAL) HEMOGLOBIN AND HEMATOCRIT (02/21/2009 6:15 AM CDT) HEMATOCRIT 31.7(L) 35.5 - 44.0 % [facility] HEMOGLOBIN 11.6(L) 11.8 - 14.8 g/dL [facility] Blood specimen (specimen) 02/21/2009 6:15 AM CDT 02/21/2009 6:[address] [facility] - 02/21/2009 7:03 AM CDT RM 18 Keyana Hernandez MD HEMATOLOGY ORDERABLES Final R esult Performing Organization Address [facility] Co de Phone Number [facility] CLIA# [id number] [address] [place] [address] documented in this encounter Visit Diagnoses Diagnosis Nontoxic uninodular goiter documented in this encounter Care Teams Experimental Mechanic Spacecraft Relationship Specialty Start Date End Date Gilles Spencer MD PCP - General 02/25/09 documented as of this encounter
--- OUTSIDE RECORDS SUMMARY | 2024-11-14 10:11 | XMS_ITS | Clinical Summary ---
Author Organization [facility] Address [address] [place] [address] Care Team Providers Care Night Cleaner Name Role Phone Gilles Spencer MD Primary Care Prov ider Allergies Active Allergy Reactions Criticality Noted Date Comments Sulfamethoxazole-Trimethoprim Other (See comments) Low 04/04/2019 IRRITABLE Medications levothyroxine (SYNTHROID) 125 mcg tablet daily Active PREMARIN 0.625 mg tablet Take 0.625 mg by mouth daily 12 03/14/2019 Active medroxyPROGESTER one (PROVERA) 5 mg tablet Take 5 mg by mouth daily 12 03/14/2019 Active Bifidobacterium infantis (ALIGN) 4 mg capsule 4 mg daily Active linaCLOtide (Linzess) 72 mcg capsuleIndicatio ns:Constipation Predominant Irritable Bowel Syndrome Take 1 capsule (72 mcg total) by mouth daily 30 capsule 3 07/21/2019 Active Active Problems Problem Noted Date Diagnosed Date Personal history of colonic polyps 07/21/2019 Left lower quadrant abdominal pain 04/04/2019 Assessment & Plan (07/21/2019 9:45 AM PCAT INSTRUCTOR): Blood tests were normal last time and patient did have a CT scan that was also unremarkable. No diverticula were seen. Due to her significant family history will perform colonoscopy to rule out any inflammatory process of the colon and place her on Linzess low-dose 72 micro g once daily. I've given her samples and a written prescription. Will see her at the time of colonoscopy and have further evaluation after that as needed. This is likely a constipation predominant irritable bowel with visceral hypersensitivity. Assessment & Plan (04/04/2019 2:45 PM CDT): Patient also has some discomfort that radiated to the right side. There has been no objective finding of diverticulitis or even diverticulosis. The sudden left lower quadrant pain she had in December had a clinical presentation similar to diverticulitis. She has had multiple rounds of antibiotics including Levaquin for over 2 months. I recommend she finish antibiotic. I recommend she be placed on dicyclomine 10 mg up to every 4 hours as needed and be on a probiotic. She does have hyperactive bowel sounds. Will check full blood profile and CRP. We will then consider colonoscopy if her symptoms persist. This is more suggestive of a flare of irritable bowel syndrome following a previous episode of diverticulitis. Will discuss further after the laboratories return. Surgical History Surgery Date Site/Laterality Comments COLONOSCOPY 05/16/2018 Adenoma. THYROID SURGERY 07/05/2008 - 07/04/2009 Medical History Medical History Date Comments Personal history of colonic polyps Family History Medical History Relation Name Comments intestinal issues Mother Brain cancer Son Relation Name Status Comments Mother Son Social History Tobacco Use Types Packs/Day Years Used Date Smoking Tobacco: Every Day Cigarettes Comments:2 Packs per week Alcohol Use Standard Drinks/Week Comments Yes 0 (1 standard drink = 0.6 oz pur e alcohol) AUDIT-C Answer Date Recorded Frequency of Alcohol Consumption 2-3 times a wee k 04/04/2019 Average Number of Drinks Not on file 019 Frequency of Binge Drinking Not on file 07/2018 Personal Safety Answer Date Recorded Getting School Help Needed Not on file 09/03 Comments Unknown Sex and Gender Information Value Date Recorded Sex Assigned at Not on file Legal Sex Female 3:31 AM PCAT INSTRUCTOR Gender Identity Not on file Sexual Orientation Not on file Obstetrics History Last Filed Vital Signs Vital Sign Reading Time Taken Comments Blood Pressure 115/73 07/21/2019 8:57 AM PCAT INSTRUCTOR Pulse 66 07/21/2019 8:57 AM PCAT INSTRUCTOR Temperature - - Respiratory Rate - - Oxygen Saturation - - Inhaled Oxygen Concentration - - Weight 78.4 kg (172 lb 12.8 oz) 07/21/2019 8:57 AM PCAT INSTRUCTOR Height 172.7 cm (5' 8 ) 07/21/2019 8:57 AM PCAT INSTRUCTOR Body Mass Index 26.27 07/21/2019 8:57 AM PCAT INSTRUCTOR Plan of Treatment Health Maintenance Due Date Last Done Comments Breast Cancer Screening-Mammogram 1960 Cervical Cancer Screening 1960 Depression Screening 1960 Hepatitis C Screening 1960 DTaP/Tdap/Td Vaccine (1 - Tdap) 1973 Hepatitis B Screening 1980 Regular Well Visit/Exam 18-64 1980 Pneumococcal vaccine <65 (1 of 2 - PCV) 1981 Zoster Vaccine (1 of 2) 2012 Influenza Vaccine (#1) 2024 Colon Cancer Screening-Colonoscopy 08/17/20292019, 05/16/2018 Colon Cancer Screening-CT Colonography Discontinued , 05/16/2018 Colon Cancer Screening-DNA Stool Discontinued 08/17/19 20, 05/16/2018 Colon Cancer Screening-FIT Discontinued 08/17/2019, Colon Cancer Screening-Sigmoidoscopy Discontinued 08/05, 05/16/2018 Procedures Procedure Name Priority Date/Time Associated Diagnosis Comments COLONOSCOPY Routine 08/17/2019 from Last 3 Months or Most Recently Relevant to Health Maintenance Results * Colonoscopy (08/17/2019) Anatomical Region Laterality Modality Other Crispin Morse MD ENDOSCOPY PROCEDURES Final Result from Last 3 Months or Most Recently Relevant to Health Maintenance Insurance [facility] ACCESS CHOICE ANTHEM ACCESS CHOICE ANTHEM ACCESS CHOICE Care Teams Night Cleaner Relationship Specialty Start Date End Date Gilles Spencer MD PCP - General Family Medicine 03/10/19
--- OUTSIDE RECORDS SUMMARY | 2024-11-14 10:11 | XMS_ITS | Referral Summary ---
Author Organization [facility] C Address [address] [address] Care Team Providers Care Construction Engineering Manager Name Role Phone Gilles Spencer MD [...] 04/04/2019 Assessment & Plan (07/21/2019 9:45 AM CASTING AGENT): Blood tests were normal last time and [...] Will discuss further after the laboratories return. Social History Tobacco Use Types Packs/Day Years [...] on file Legal Sex Female 3:31 AM CASTING AGENT Gender Identity Not on file Sexual Orientation Not on file Last Filed Vital Signs Vital Sign Reading Time Taken Comments Blood Pressure 115/73 07/21/2019 8:57 AM CASTING AGENT Pulse 66 07/21/2019 8:57 AM CASTING AGENT Temperature - - Respiratory Rate - - Oxygen Saturation - - Inhaled Oxygen Concentration - - Weight 78.4 kg (172 lb 12.8 oz) 07/21/2019 8:57 AM CASTING AGENT Height 172.7 cm (5' 8 ) 07/21/2019 8:57 AM CASTING AGENT Body Mass Index 26.27 07/21/2019 8:57 AM CASTING AGENT Plan of Treatment Not on file Procedures Procedure Name Priority Date/Time Associated Diagnosis Comments COLONOSCOPY Routine 08/17/2019 from Last 3 Months or Most Recently Relevant to Health Maintenance Results * Colonoscopy (08/17/2019) Anatomical Region Laterality Modality Other Crispin Morse MD ENDOSCOPY PROCEDURES Final Result from Last 3 Months or Most Recently Relevant to Health Maintenance Insurance [email or web address] ACCESS CHOICE [email or web address] ACCESS CHOICE [email or web address] ACCESS CHOICE Care Teams Construction Engineering Manager Relationship Specialty Start Date End Date Gilles Spencer MD PCP - General Family Medicine 03/10/19
== END ==
LOC: ANHLAB 08:58
PROVIDERS: PCP Family Medicine Adolescent Medicine; Visit Provider Physician Assistant Surgical
DX: D23.5 Other benign neoplasm of skin of trunk (principal)
CPT/HCPCS: 88305

== ENCOUNTER → 2024-12-26 11:30 | Outpatient (REF) | payer BC, SELFPAY ==
--- NOTE | 2024-12-26 11:30 | S_PTH ---
PATIENT: Yaritza Barba LOC: [facility] U#:[id number] AGE/SX: 65/F ROOM: RE12/26/[address]: Kathia Torres PA-C : 1960 BED: DIS: SPEC #: [id number] RECD: 12/26/24 11:44 STATUS: AYALA REQ #: [id number] ARY: 12/26/24 11:[address]: Kathia Torres DEPT: [facility] Surgical RECD BY: Lexx Robles ENTERED: 12/26/24 11:44 SP TYPE: Surgical OTHR DR: Gilles Spencer MD Tissues: A - Cyst Procedures: Hematoxylin and Eosin Stain Gross and Microscopic Level 4
== END ==
LOC: ANHLAB 11:30
PROVIDERS: PCP Family Medicine Adolescent Medicine; Visit Provider Physician Assistant Surgical
DX: L72.0 Epidermal cyst (principal)
CPT/HCPCS: 88305